=== PATIENT | female | born 1975 | race Caucasian/White ===

== ENCOUNTER → 2017-08-22 | Outpatient (CLI) | payer MEDICAID | LOC: FIMAGING 09:24 | PROVIDERS: ATTEND Family Medicine | DX: R10.12 Left upper quadrant pain (principal); R10.13 Epigastric pain ==

== ENCOUNTER 2018-07-12 21:20 | Emergency (ER) | payer MEDICAID ==
[2018-07-12] MEDS ORDERED: LET GEL TOPICAL 1 EA SYR TP ONE ×2 (21:23→21:28)
[2018-07-12 21:40] VITALS: BP 131/89
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
== END 2018-07-12 22:40 | disposition home or self-care (01) ==
LOC: CED 21:20
PROC: 0HQ1XZZ Repair Face Skin, External Approach (ICD-10-PCS; principal; 2018-07-12)
DX: S01.81XA Laceration without foreign body of other part of head, initial encounter (principal); S00.82XA Blister (nonthermal) of other part of head, initial encounter; S40.212A Abrasion of left shoulder, initial encounter; S10.91XA Abrasion of unspecified part of neck, initial encounter; V00.141A Fall from scooter (nonmotorized), initial encounter; Y92.480 Sidewalk as the place of occurrence of the external cause
CPT/HCPCS: 99283-ER